=== PATIENT | female | born 1955 | race Caucasian/White ===

== ENCOUNTER 2018-12-15 07:19 | Day surgery (SDC) | payer OTHER ==
--- NOTE | 2018-12-14 13:09 | PREOPHP ---
DATE OF ADMISSION: 12/15/2018 HISTORY OF PRESENT ILLNESS: This 63-year-old patient is admitted for elective pterygium excision of the left eye. Patient has had cloudy vision and burning sensation associated with irritation of the left eye for the past 2 months, diagnosed as pterygium. Topical anti-inflammatory drops have not bee n successful in relieving the patient's significant problem. The patient's systemic history is posit prosper for a 9-year history of guo-trirgbb-tmsquoqve diabetes mellitus and systemic hypertension. CURRENT MEDICATIONS INCLUDE: 1. Metformin. 2. Hydrochlorothiazide. 3. Aspirin (discontinued 1 week prior to surgery). ALLERGIES: There are no known allergies. PHYSICAL EXAMINATION: The visual acuity with best correction is 20/25 in the right eye and 20/30 in the left eye. Slit lamp examination notes a vascularized nasal pterygium extending onto clear cornea to the nasal pupillary margin, both superiorly and inferiorly. Applanation tonometry is 17 mmHg in both eyes. Examination of the retina is within normal limits. DIAGNOSIS: Visually significant pterygium, left eye. PLAN: Pterygium excision with mitomycin C application and rotating conjunctival graft, left eye. Th e risks and alternatives to the surgery have been discussed with the patient as well as the potential for recurrence of the pterygium growth following the surgery. The patient understands this and agre es to proceed with surgery. Dictated By: SANA DYSON/HAZEL Conf#: [id number] DID#: [id number]
[2018-12-15] VITALS (11 sets, daily range): BP systolic 100–149; BP diastolic 56–73; PULSE 62–70; RESP 16–20; Ht 158.8 cm; Wt 55.0 kg
[~2018-12-15] VITALS: Ht 158.8 cm; Wt 55.0 kg
[~2018-12-15 07:19] MED LIST: BALANCED SALT SOLN 15 ML OPH IRRIG ONE; MOXIFLOXACIN 0.5% 3 ML OPH LEFT EYE ONE
[2018-12-15] MEDS ORDERED: MITOMYCIN 5 MG INJ OP ONE (08:00)
[2018-12-15] MEDS ORDERED: SIMV20TA PO (08:09)
[2018-12-15] MEDS ORDERED: LOSA25TA12 PO (08:10)
[2018-12-15] MEDS ORDERED: METF500T24 PO (08:10)
[2018-12-15] MEDS ORDERED: ASPI81TA52 PO (08:11)
[2018-12-15] MEDS ORDERED: HYDR12.58 PO (08:11)
[2018-12-15] MEDS ORDERED: LORA-186 PO (08:12)
[2018-12-15] MEDS ORDERED: CALC-74 PO (08:13)
--- NOTE | 2018-12-15 10:45 | PREAC ---
Date/Time of Note Date/Time of Note DATE: 12/15/18 TIME: 10:43 Anesthesia Eval and Record Evaluation Time Pre-Procedure Interview DATE: 12/15/18 TIME: 10:43 Age 63 Sex female NPO: 8 hrs Preoperative diagnosis L eye pterygium Planned procedure L pterygium excision Past Medical History Past Medical History: Includes Cardio: HTN, Dyslipidemia Surgery & Anesthesia Issues No known issue Meds Anticoagulation: No Beta Zaida within 24 hr: No Reason Beta Zaida not given: Pt. not on B-Zaida Reported Medications Calcium Carbonate-Vit D3-Minerals (Calcium 600 + D + Minerals) 1 Each Tablet, 1 TAB PO BID, TAB 12/15/18 Loratadine* (Claritin*) 10 Mg Tablet, 10 MG PO DAILY, TAB 12/15/18 Aspirin (Low Dose Aspirin) 81 Mg Tablet.dr, 81 MG PO DAILY, #30 TAB 12/15/18 Hydrochlorothiazide* (Hydrochlorothiazide*) 12.5 Mg Tablet, 12.5 MG PO DAILY, #30 TAB 12/15/18 Losartan Potassium* (Losartan Potassium*) 25 Mg Tablet, 25 MG PO DAILY, TAB 12/15/18 Metformin Hcl* (Metformin Hcl*) 500 Mg Tablet, 500 MG PO WITH BREAKFAST, #30 TAB 12/15/18 Simvastatin* (Zocor*) 20 Mg Tablet, 20 MG PO QHS, #30 TAB 12/15/18 Meds reviewed: Yes Allergies Coded Allergies: No Known Allergy (Unverified , 12/15/18) Allergies Reviewed: Yes Labs/Studies Labs Reviewed: Reviewed by anesthesiologist test: N/A Studies: ECG (SR), CXR (no active dz) Pre-procedure Exam Last vitals Vital Signs Date Temp Pulse Resp B/P (MAP) Pulse Ox O2 O2 Flow FiO2 Time Delivery Rate 12/15/18 96.4 70 16 149/73 99 Room Air 08:44 (98) Airway: Adequate mouth opening, Adequate thyromental dist Mallampati: Mallampati II Teeth: Normal Lung: Normal Heart: Normal ASA Physical Status ASA physical status: 2 Emergency: None Planned Anesthetic General/MAC: MAC Pre-operative Attestations Prior to commencing anesthesia and surgery, the patient was re-evaluated, there was verification of: *The patient's identity *The results of appropriate recent lab work and preoperative vital signs *The above evaluation not changing prior to induction *Anesthetic plan, risk benefits, alternative and complications discussed with patient/family; questions answered; patient/family understands, accepts and wishes to proceed. JAZLYN BENOIT Dec 15, 2018 10:45
[2018-12-15] MEDS ORDERED: LIDOCAINE 1.5%/EPI MPF (SDV) 30 ML VIAL ONE (10:46)
[2018-12-15] MEDS ORDERED: TOBRAMYCIN/DEXAMETH 2.5 ML OPH ONE (10:46)
[2018-12-15] MEDS ORDERED: TOBRAMYCIN/DEXAMETH 3.5 GM OPH OINT ONE (10:47)
[2018-12-15] MEDS ORDERED: ALBUTEROL 0.083% (NEB) 2.5 MG/3 ML AMP HHN PRN (11:00)
[2018-12-15] MEDS ORDERED: FENTAnyl 50 MCG/ML VIAL IV PRN (11:00)
[2018-12-15] MEDS ORDERED: ACETAMINOPHEN 500 MG TAB PO PRN (11:00)
[2018-12-15] MEDS ORDERED: ONDANSETRON 4 MG INJ IV PRN (11:00)
[2018-12-15] MEDS ORDERED: LIDOCAINE 2% (SDV) 5 ML INJ ONE (11:00)
[2018-12-15] MEDS ORDERED: PROPOFOL 200 MG INJ ONE (11:00)
[2018-12-15] MEDS ORDERED: MIDAZOLAM 1 MG/ML 2 ML INJ ONE (11:20)
--- NOTE | 2018-12-15 11:39 | PAC ---
Date/Time of Note Date/Time of Note DATE: 12/15/18 TIME: 11:38 Post-Anesthesia Notes Post-Anesthesia Note Last documented vital signs Vital Signs Date Temp Pulse Resp B/P (MAP) Pulse Ox O2 O2 Flow FiO2 Time Delivery Rate 12/15/18 96.4 98 70 65 16 16 149/73 99 99 Room 08:44 113 (98) 124/ Air RA 5 61 Activity: WNL Respiratory function: WNL Cardiovascular function: WNL Mental status: Baseline Pain reasonably controlled: Yes Hydration appropriate: Yes Nausea/Vomiting absent: Yes JAZLYN BENOIT Dec 15, 2018 11:39
--- NOTE | 2018-12-15 11:43 | SIPON ---
Date/Time of Note Date/Time of Note DATE: 12/15/18 TIME: 11:40 Operative Report Preoperative Diagnosis pterygium Postoperative Diagnosis same Operation/Procedure Performed pterygium excision with mitomycin C application and rotating conjunctival graft Surgeon sana walker assistant professor of mathematics none Anesthesia: MAC Estimated blood loss: none Transfusion Required none Specimen none Grafts/Implants conunctival graft Complications none SANA WALKER MD Dec 15, 2018 11:43
--- NOTE | 2018-12-15 15:40 | OPR ---
DATE OF OPERATION: 12/15/2018 PREOPERATIVE DIAGNOSIS: Pterygium, left eye. POSTOPERATIVE DIAGNOSIS: Pterygium, left eye. PROCEDURE: Pterygium excision with mitomycin C 0.03% application and rotating conjunctival graft, le ft eye. SURGEON: Sana Mendosa MD ANESTHESIOLOGIST: Vida Pineda NP DESCRIPTION OF PROCEDURE: The patient was brought to the operating room on an eye gurney attached to electrocardiogram monitor and given oxygen via nasal cannula. Intravenous sedation was administered to the patient and then local anesthesia using lidocaine 1.5% with epinephrine was given beneath the conjunctival tail of the pterygium as well as under the superior limbal conjunctiva. The patient wa s then prepped and draped in the sterile manner. A speculum was inserted between the lids of the lef t eye and then using [employer] scissors. The tail of the pterygium was dissected from surrounding conju nctiva and subtenons tissue down to bare sclera and brought to the corneoscleral limbus. Using a cur ofelia blade, the pterygium was then dissected off of the surface of the cornea to region adjacent to th e pupillary axis in the nasal quadrant. The pterygium extended both superiorly and inferiorly to the edge of the pupillary axis and these were carefully dissected off. Using amna tipped bur, the co rneal bed was then polished until a smooth contour was present. Hemostasis was applied to the corneo scleral limbus where some bleeding vessels were present. Following this, a Weck-Lorri sponge soaked in mitomycin C 0.03% was placed on bare sclera and left in place for 1 minute. Following this, the are a was irrigated copiously with balanced salt solution for an additional minute. Attention was turned to the superior limbus. A traction suture was placed at the corneoscleral limbus in the temporal qu adrant in order to rotate the eye downward. The conjunctiva was disinserted at the corneal scleral l imbus from the edge of the pterygium to the superotemporal area and then the incision was carried pos teriorly for about 3 mm and then brought back towards the nasal quadrant to create a tongue of conjun ctiva. Once this was created, Tisseel was applied to the scleral bed and then the conjunctival flap was placed over it with additional Tisseel placed on top of the conjunctival graft. This was left in place for approximately 30 seconds and then tractional suture was removed and TobraDex ointment was placed on the surface of the eye. The eye was then patched with pressure patch and the patient left the operating room in satisfactory condition. Dictated By: SANA DYSON/HAZEL Conf#: [id number] DID#: [id number]
== END 2018-12-15 13:03 | disposition home or self-care (01) ==
LOC: SDS 07:19
PROVIDERS: ATTEND Ophthalmology
DX: H11.002 Unspecified pterygium of left eye (principal); I10 Essential (primary) hypertension; E78.5 Hyperlipidemia, unspecified; E11.9 Type 2 diabetes mellitus without complications
CPT/HCPCS: 65426; 82962; J2250; J9280; Z7512; Z7610